=== PATIENT | male | born 2000 | race Caucasian/White ===

== ENCOUNTER 2019-06-04 20:18 | Observation (INO) | payer BC ==
--- NOTE | 2019-06-04 20:24 | ED ---
Abdominal Pain/Male - HPI Summary HPI Summary: 18 yo male presents with abdominal pain. He tells me that this morning he developed generalized periumbilical abdominal pain and nausea. As the day has progressed his pain has migrated to the RLQ and he has become more nauseous with vomiting x3. Last drank about an hour COOKER SYRUP and vomited soon after. Nothing OTC for symptoms. Denies fever, chills, SOB, chest pain, dysuria, back pain, c/ d. Last BM was this morning. No prior surgeries per pt - History of Current Complaint Stated Complaint: ABD PAIN PER PT Time Seen by Provider: 06/04/19 20:22 Hx Obtained From: Patient Onset/Duration: Sudden Onset Severity Initially: Mild Severity Currently: Moderate Pain Intensity: 8 Pain Scale Used: 0-10 Numeric - Allergies/Home Medications Allergies/Adverse Reactions: Allergies Allergy/AdvReac Type Severity Reaction Status Date / Time No Known Allergies Allergy Verified 06/04/19 20:24 PMH/Surg Hx/FS Hx/Imm Hx Endocrine/Hematology History: Denies: Hx Diabetes Cardiovascular History: Denies: Hx Hypotension, Hx Hypertension Respiratory History: Denies: Hx Asthma, Hx Chronic Obstructive Pulmonary Disease (COPD) Neurological History: Denies: Hx CVA, Hx Headaches Psychiatric History: Reports: Hx Anxiety, Hx Depression - Surgical History Surgical History: None - Immunization History Immunizations Up to Date: Yes Infectious Disease History: No - Family History Known Family History: Positive: None - Social History Occupation: Student Lives: Dormitory/Roommates Alcohol Use: Occasionally Substance Use Type: Reports: None Smoking Status (MU): Never Smoked Tobacco Review of Systems Constitutional: Negative Eyes: Negative ENT: Negative Cardiovascular: Negative Respiratory: Negative Positive: Abdominal Pain, Vomiting, Nausea Genitourinary: Negative Musculoskeletal: Negative Skin: Negative Neurological: Negative Psychological: Normal All Other Systems Reviewed And Are Negative: No Physical Exam - Summary Physical Exam Summary: GENERAL: NAD. WDWN. No pain distress. SKIN: No rashes, sores, or open wounds. NECK: Supple. Nontender. No lymphadenopathy. CHEST: CTAB. No r/r/w. No accessory muscle use. Breathing comfortably and in no distress. CV: RRR. Pulses intact. Brisk cap refill. ABDOMEN: Moderate RLQ pain with mild guarding. Positive rovsings sign. Soft. No organomegaly. No CVA tenderness. Bowel sounds present NEURO: Alert. PSYCH: Age appropriate behavior. Triage Information Reviewed: Yes Vital Signs On Initial Exam: Vital Signs: Temp Pulse Resp BP Pulse Ox 99 F 98 15 132/75 98 06/04/19 20:20 06/04/19 20:20 06/04/19 20:20 06/04/19 20:20 06/04/19 20:20 Vital Signs Reviewed: Yes Procedures - Sedation Patient Received Moderate/Deep Sedation with Procedure: No Diagnostics - Laboratory Lab Results: Laboratory Tests 06/04/19 06/04/19 06/04/19 20:36 20:36 20:36 WBC 15.4 H RBC 5.23 Hgb 16.5 Hct 48 MCV 91 MCH 32 H MCHC 35 RDW 13 Plt Count 205 MPV 9.1 Neut % (Auto) 82.9 Lymph % (Auto) 4.8 [place] % (Auto) 12.1 Eos % (Auto) 0.0 Baso % (Auto) 0.2 Absolute Neuts (auto) 12.8 H Absolute Lymphs (auto) 0.7 L Absolute Monos (auto) 1.9 H Absolute Eos (auto) 0.0 Absolute Basos (auto) 0.0 Absolute Nucleated RBC 0.0 Nucleated RBC % 0.0 Sodium 136 Potassium 3.8 Chloride 100 L Carbon Dioxide 28 Anion Gap 8 BUN 8 Creatinine 0.86 Est GFR ( Amer) 137.2 Est GFR (Non-Af Amer) 113.4 BUN/Creatinine Ratio 9.3 Glucose 118 H Lactic Acid 0.9 Calcium 10.3 Total Bilirubin 1.60 H AST 16 ALT 13 Alkaline Phosphatase 65 C-Reactive Protein 15.50 H Total Protein 7.6 Albumin 5.2 Globulin 2.4 Albumin/Globulin Ratio 2.2 Lipase < 10 L Urine Color Urine Appearance Urine pH Ur Specific Free Soil Urine Protein Urine Ketones Urine Blood Urine Nitrate Urine Bilirubin Urine Urobilinogen Ur Leukocyte Esterase Urine Glucose 06/04/19 21:49 WBC RBC Hgb Hct MCV MCH MCHC RDW Plt Count MPV Neut % (Auto) Lymph % (Auto) [place] % (Auto) Eos % (Auto) Baso % (Auto) Absolute Neuts (auto) Absolute Lymphs (auto) Absolute Monos (auto) Absolute Eos (auto) Absolute Basos (auto) Absolute Nucleated RBC Nucleated RBC % Sodium Potassium Chloride Carbon Dioxide Anion Gap BUN Creatinine Est GFR ( Amer) Est GFR (Non-Af Amer) BUN/Creatinine Ratio Glucose Lactic Acid Calcium Total Bilirubin AST ALT Alkaline Phosphatase C-Reactive Protein Total Protein Albumin Globulin Albumin/Globulin Ratio Lipase Urine Color Straw Urine Appearance Clear Urine pH 7.0 Ur Specific Free Soil 1.004 L Urine Protein Negative Urine Ketones Trace A Urine Blood Negative Urine Nitrate Negative Urine Bilirubin Negative Urine Urobilinogen Negative Ur Leukocyte Esterase Negative Urine Glucose Negative Result Diagrams: 06/04/19 20:36 06/04/19 20:36 Lab Statement: Any lab studies that have been ordered have been reviewed, and results considered in the medical decision making process. - CT ab/pelv CT Interpretation Completed By: Radiologist Summary of CT Findings: IMPRESSION: 1. Acute uncomplicated appendicitis. 2. Bosniak type II renal cyst. No followup indicated. Abdominal Pain Male Course/Dx - Course Course Of Treatment: CT as above. Mild leukocytosis. Discussed findings and exam with Dr. Angeles who will admit pt to surgical service. Recommends starting zosyn in the ED. Discussed with pt and he is agreeable to admission. Discussed with Dr. Lima and he agrees with the plan. - Diagnoses Provider Diagnoses: Appendicitis Discharge ED - Sign-Out/Discharge Documenting (check all that apply): Patient Departure - Discharge Plan Condition: Stable Disposition: ADMITTED TO [facility] Referrals: [facility] [Primary Care Provider] - - Billing Disposition and Condition Condition: STABLE Disposition: Admitted to [facility]
[2019-06-04] MEDS ORDERED: NS 0.9% 1000 ML** 1,000 ML IV ONE (20:26)
[2019-06-04] MEDS ORDERED: Ondansetron INJ* 2 MG/ML VIAL IV ONE (20:26)
[2019-06-04 20:41] LABS: Hematocrit 48 % (42-52); Hemoglobin 16.5 g/dL (14.0-18.0); Mean Corpuscular HGB Conc 35 g/dL (31-36); Mean Corpuscular Hemoglobin 32 pg (27-31); Mean Corpuscular Volume 91 fL (80-94); Mean Platelet Volume 9.1 fL (7.4-10.4); Platelet Count 205 10^3/uL (150-450); Red Blood Count 5.23 10^6 /uL (4.18-5.48); Red Cell Distribution Width 13 % (10-15); White Blood Count 15.4 10^3/uL (3.5-10.8)
[2019-06-04 20:59] LABS: ALT 13 U/L (7-52); AST 16 U/L (13-39); Albumin 5.2 g/dL (3.2-5.2); Albumin/Globulin Ratio 2.2 (1-3); Alkaline Phosphatase 65 U/L (34-104); Anion Gap 8 mmol/L (2-11); BUN/Creatinine Ratio 9.3 (8-20); Blood Urea Nitrogen 8 mg/dL (6-24); CO2 Carbon Dioxide 28 mmol/L (22-32); Calcium 10.3 mg/dL (8.6-10.3); Chloride 100 mmol/L (101-111); EGFR African American 137.2 (>60); EGFR Non-African American 113.4 (>60); Globulin 2.4 g/dL (2-4); Glucose 118 mg/dL (70-100); Potassium 3.8 mmol/L (3.5-5.0); Sodium 136 mmol/L (135-145); Total Protein 7.6 g/dL (6.4-8.9)
[2019-06-04 21:28] LABS: ABS Lymphocytes 0.7 10^3/ul (1.0-4.8); ABS Monocytes 1.9 10^3/ul (0-0.8); ABS Neutrophils 12.8 10^3/ul (1.5-7.7); Lymphocyte % 4.8 %
[2019-06-04] MEDS ORDERED: Iohexol 300* (CONTRAST) 10 ML SDV IV ONE (21:52)
[2019-06-04 21:55] LABS: Urine Appearance Clear; Urine Bilirubin Negative (Negative); Urine Blood Negative (Negative); Urine Color Straw; Urine Glucose Negative (Negative); Urine Ketones Trace (Negative); Urine Nitrite Negative (Negative); Urine Protein Negative (Negative); Urine Specific Gravity 1.004 (1.010-1.030); Urine Urobilinogen Negative (Negative)
[2019-06-04] MEDS ORDERED: Piperacillin/Tazobac ADVAN(*) 3.375 GM in NS 0.9% 100 ML* 100 ML IVPB ONE (23:34)
[2019-06-04] MEDS ORDERED: Morphine INJ* 2 MG/ML 1 ML SYRINGE (TWO MG - NEW SYRINGE VERSION) IV PRN (23:38)
[2019-06-04] MEDS ORDERED: Metoclopramide IV* 5 MG/ML 2 ML VIAL IV PRN (23:39)
[2019-06-04] MEDS ORDERED: Piperacillin/Tazobac (*) 3.375 GM BAG IVPB SCH (23:45)
[2019-06-04] MEDS ORDERED: NS 0.9% 1000 ML** 1,000 ML IV SCH (23:45)
[2019-06-05] MEDS ORDERED: Zosyn per Pharmacy* NOTE FOLLOW UP PRN (00:41)
[2019-06-05] MEDS ORDERED: ZOSYN 3.375 GM Q8H per EXTENDED INFUSION IVPB SCH ×2 (04:00)
[2019-06-05] MEDS ORDERED: Buffered Lidocaine 1% SYRIN* 1 ML/SYRINGE INTRADERM ONE (08:32)
--- NOTE | 2019-06-05 08:55 | HP ---
CC: [facility] * DATE OF ADMISSION: 06/04/19 PATIENT SEEN ON: 06/05/19 - ROOM # [id number] HISTORY OF PRESENT ILLNESS: I was contacted in the overnight by the ER staff regarding Mr. Hines, a 18-year-old otherwise healthy gentleman who was worked up for abdominal pain and diagnosed with acute appendicitis based on CT scan. I admitted him to my service and saw him this morning. Patient describes onset of pain yesterday, periumbilical, that moved down towards the right lower quadrant. He presented to the Emergency Room where workup included labs which showed an elevated blood cell count of 15, and a CAT scan which was consistent with acute appendicitis. Patient denied any previous similar symptoms. He had related GI symptoms of nausea with one episode of vomiting. No change in bowel habits, no fevers or chills, and he did endorse anorexia. PAST MEDICAL HISTORY: None. PAST SURGICAL HISTORY: None. MEDICATIONS: None. ALLERGIES: No known drug allergies. SOCIAL HISTORY: Non-smoker, [employer] student studying film. He's from the [facility]. He lives with a roommate in an apartment. Non-drinker. FAMILY HISTORY: Non-contributory. No family history of ulcerative colitis or Crohn's disease. REVIEW OF SYSTEMS: No shortness of breath, no chest pain, no fevers, no chills. No cardiovascular disease. Abdominal pain as described. No GERD-like symptoms. No irritable bowel symptoms. No change in bowel habits. Good exercise tolerance. No endocrine disorders. No bleeding or clotting disorders. No psychiatric illnesses. No seasonal allergies. One hospitalization in the past for a broken arm when he was 8 years old. PHYSICAL EXAMINATION VITAL SIGNS: On exam, T-max 100.4, current temperature 99.6, blood pressure 116 /58, heart rate 87, respirations 16, O2 sat 98 on room air. He's alert and oriented x3, in no apparent distress. HEENT: Normocephalic, atraumatic, sclerae anicteric, mucous membranes dry. NECK: No lymphadenopathy. LUNGS: Clear to auscultation bilaterally. HEART: S1, S2, no murmurs appreciated. ABDOMEN: Soft, mild distention, tender in the right lower quadrant and in the suprapubic region without peritoneal signs. No hernias or masses noted. RECTAL EXAM: Not performed. EXTREMITIES: Within normal limits with no pitting edema. LABS: Described above. CT scan images reviewed and consistent with acute appendicitis without abscess, no free air. IMPRESSION: Acute appendicitis. PLAN: Continue NPO status for OR. Operative intervention including laparoscopic appendectomy. Outline of details of procedure briefly going over the risks, benefits and alternatives, discussing an antibiotic. Patient wishes to proceed with surgery. He understands that my partner will be doing the procedure, who will also discuss the risks again with him. Patient will remain on antibiotics and should get a pre-operative antibiotic dosing. He is on IV fluids at this point with the possibility of discharge home after the procedure depending on findings intraoperatively. Patient is aware of this plan and we will move towards operative intervention. [id number]/[facility] #: [id number] FATMATA
[2019-06-05] MEDS ORDERED: Lactated Ringers 1000 ML Bag* 1,000 ML IV SCH (09:00)
[2019-06-05] MEDS ORDERED: Bupivacaine 0.5%* 50 ML MDV VIAL ONE (09:04)
[2019-06-05] MEDS ORDERED: Famotidine IV* 10 MG/ML 2 ML (20 mg) ONE (09:13)
[2019-06-05] MEDS ORDERED: fentaNYL* 50 MCG/ML 2 ML VIAL (100 MCG VIAL) ONE ×2 (09:15→10:33)
[2019-06-05] MEDS ORDERED: Midazolam* 1 MG/ML 2 ML VIAL (2 MG) ONE (09:15)
[2019-06-05] MEDS ORDERED: Cisatracurium* 2 MG/ML MDV 5 ML ONE (09:16)
[2019-06-05] MEDS ORDERED: Lidocaine 2% PF * 5 ML VIAL ONE (09:35)
[2019-06-05] MEDS ORDERED: Ketorolac INJ* 30 MG/ML 1 ML VIAL ONE (09:45)
[2019-06-05] MEDS ORDERED: Succinylcholine* 20 MG/ML 10 ML VIAL ONE (09:45)
[2019-06-05] MEDS ORDERED: Ondansetron INJ* 2 MG/ML VIAL ONE (09:45)
[2019-06-05] MEDS ORDERED: Dexamethasone IV* 4 MG/ML 1 ML (4 MG) ONE (09:45)
[2019-06-05] MEDS ORDERED: Propofol* 10 MG/ML 20 ML BTL ONE (09:45)
[2019-06-05] MEDS ORDERED: diPHENhydraMINE IV* 50 MG/ML 1 ml VIAL (BENADRYL) IV PRN (10:17)
[2019-06-05] MEDS ORDERED: Levalbuterol 0.63MG/3ML NEB* UNIT OF USE INH PRN (10:17)
[2019-06-05] MEDS ORDERED: Naloxone* 0.4 MG/ML 1 ML VIAL IV PRN (10:17)
[2019-06-05] MEDS ORDERED: Acetaminophen IV 1GM/100ML * 1,000 MG/100 ML VIAL IVPB ONE (10:17)
[2019-06-05] MEDS ORDERED: Ondansetron INJ* 2 MG/ML VIAL IV PRN (10:17)
[2019-06-05] MEDS ORDERED: fentaNYL* 50 MCG/ML 2 ML VIAL (100 MCG VIAL) IV PRN (10:17)
[2019-06-05] MEDS ORDERED: DiMENhydriNATE IV* 50 MG/ML VIAL IV PUSH PRN (10:17)
[2019-06-05 12:17] VITALS: BP 139/79
--- NOTE | 2019-06-05 13:13 | DS ---
Admission Date: 06/04/19 Discharge Date: 06/05/19 Reason for Admission: Acute appendicitis Discharge Diagnosis: Acute appendicitis Procedures: Laparoscopic appendectomy 06/05/19 HPI: Fozia Hines is a 18 year old man who was previously healthy who presented to the ED with 24-hours of abdominal pain, nausea, and vomiting. The pain was localized to the RLQ. In the ED, his WBC and CRP was elevated. CT scan showed dilated appendix with periappendiceal stranding. He was admitted to the surgical service. Hospital Course: The patient was started on Zosyn. He was brought to the OR on 06/05/19 for laparoscopic appendectomy. The procedure was uncomplicated, and he recovered in the PACU. He was deemed medically ready for discharge from the recovery room. Physical exam was notable for tenderness in the RLQ. WBC 15.4. CRP 15.5 CT scan with dilated appendix and moderate periappendiceal stranding. Discharge Instructions: No heavy lifting more than 10 lbs for 3 weeks. Activity otherwise is as tolerated. Diet as tolerated. Percocet was sent to the pharmacy, and he was cautioned to avoid operating machinery or driving while taking narcotic medication. He will go to clinic on 06/15/19 for follow up appointment. Condition: Stable Disposition: Home
--- NOTE | 2019-06-05 13:38 | OP ---
OPERATIVE REPORT: DATE OF OPERATION: 06/05/19 DATE OF : 89 SURGEON: Kylee Gayle MD FAST FOOD CASHIER: Merrick Schrader MD and SERVANDO Hernández ANESTHESIA: General. EBL: Minimal PRE-OPERATIVE DIAGNOSIS: Acute appendicitis. POST-OPERATIVE DIAGNOSIS: Acute appendicitis. OPERATIVE PROCEDURE: Laparoscopic appendectomy. INDICATIONS: Fozia Hinse is a 18-year-old man otherwise healthy, who presented to the ED with 24 hours of abdominal pain, nausea, and vomiting. The abdominal pain was localized to the right lower quadrant. He denied fevers at home. In the emergency room, his white blood cell count was 15.4 and CRP was 15.5. He underwent CT scan, which showed a dilated appendix and moderate periappendiceal stranding. I discussed appendectomy with the patient. We talked about benefits and risks including, but not limited to bleeding, infection, and bowel injury. He agreed to proceed with surgery. FINDINGS: Non-perforated, inflamed appendix. DESCRIPTION OF PROCEDURE: The patient was brought back to the OR and placed in the supine position on the OR table. SCDs were placed. General anesthesia was administered. A Bundy catheter was placed. The abdomen was prepped and draped in the usual sterile fashion. A time-out identifying the patient's name, the patient's date of , and the procedure. A curvilinear infraumbilical incision was made. The incision was taken down to the subcutaneous tissue using electrocautery and blunt dissection. The fascia was incised sharply with a scalpel. The peritoneum was opened carefully using Metzenbaum scissors. A Nora trocar was placed. Pneumoperitoneum was achieved to 15 mmHg. A 5 mm trocar was placed in the left lower quadrant under direct visualization. A second 5 mm trocar was placed in the suprapubic region under direct visualization. The appendix could be seen in the right lower quadrant. It appeared inflamed, but there was no evidence of perforation. The appendix was bluntly dissected away from edematous mesentery in order to elevate the appendix. The mesoappendix was divided using a LigaSure. Peritoneum and fat were dissected away from the base of the appendix using blunt dissection and LigaSure. A 13 mm serrano staple load was used to divide the appendix at the base. The appendix was placed in a specimen bag and sent to pathology for permanent section. The staple line was inspected and appeared intact. The mesoappendix also had good hemostasis. The trocars were removed under direct visualization. The trocar sites were injected with 0.5% Marcaine for a total of 18 mL. The umbilical site was closed using 0- Vicryl interrupted sutures. The skin was closed with a running 4-0 Monocryl. The 5 mm trocar sites were closed with 4-0 interrupted Monocryl sutures. The incisions were covered with surgical glue. The Bundy catheter was removed. The patient was extubated and brought to the PACU in stable condition. All needle and sponge counts were correct. [id number]/[facility] #: [id number] MTDD
== END 2019-06-05 12:30 | disposition home or self-care (01) ==
LOC: ED 20:18 → INTOOBSV 23:34 → SSU 23:34
PROVIDERS: ADMIT Surgery; ATTEND Surgery Surgical Critical Care
DX: K35.80 Unspecified acute appendicitis (principal); R10.9 Unspecified abdominal pain; R11.2 Nausea with vomiting, unspecified
CPT/HCPCS: 36415; 74177; 80053; 81003; 83605; 83690; 85025; 86140; 88304; 96361; 96365; 96375; 99283; G0378; J0330; J1100; J1885; J2250; J2405; J2543; J2704; J3010; J3490; Q9967